=== PATIENT | female | born 1950 | race Caucasian/White ===

== ENCOUNTER → 2017-08-18 | Outpatient (CLI) | payer MEDICARE, BC ==
[~2017-08-18] MED LIST: ASPI81CH PO; CALCIUM PO; CALMAGZIN; CHOL10002 PO; ETHNOR1/5; Hair, Skin & N1 EACH PO
== END | disposition home or self-care (01) ==
LOC: LAB SHORT 13:23
DX: L03.211 Cellulitis of face (principal)
CPT/HCPCS: 87070; 87077; 87147; 87186

== ENCOUNTER 2018-09-12 07:09 | Day surgery (SDC) | payer MEDICARE, BC ==
[~2018-09-12] VITALS: Ht 162.6 cm; Wt 66.3 kg
[~2018-09-12 07:09] MED LIST changes: +BENADRYL25 MG PO; +Calcium Carbon500 MG PO; +Pepcid20 MG PO
== END 2018-09-12 09:20 | disposition home or self-care (01) ==
LOC: ORSCSDS 07:09
PROVIDERS: Internal Medicine Gastroenterology
PROC: 0DJD8ZZ Inspection of Lower Intestinal Tract, Via Natural or Artificial Opening Endoscopic (ICD-10-PCS; principal; 2018-09-12 08:30)
DX: Z12.11 Encounter for screening for malignant neoplasm of colon (principal); K57.30 Diverticulosis of large intestine without perforation or abscess without bleeding; K64.8 Other hemorrhoids; Z79.82 Long term (current) use of aspirin; Z79.899 Other long term (current) drug therapy
CPT/HCPCS: J0330; J1980; J2405; J7120

== ENCOUNTER → 2019-08-02 | Outpatient (CLI) | payer MEDICARE, BC ==
[2019-08-06 14:06] LABS: HPV 16 Negative (Negative); HPV 18 Negative (Negative); HPV OTHER HR TYPES Negative (Negative)
== END | disposition home or self-care (01) ==
LOC: LAB SHORT 13:09 → LAB 13:09
PROVIDERS: Obstetrics & Gynecology Gynecology
DX: Z12.4 Encounter for screening for malignant neoplasm of cervix (principal)
CPT/HCPCS: 87624; G0123

== ENCOUNTER → 2021-11-23 | Outpatient (CLI) | payer MEDICARE, BC | END | disposition home or self-care (01) | LOC: PLD 10:56 → LAB SHORT 10:56 | DX: D22.39 Melanocytic nevi of other parts of face (principal) | CPT/HCPCS: 88305 ==

== ENCOUNTER 2023-05-19 08:28 | Day surgery (SDC) | payer OTHER ==
[~2023-05-19] VITALS: Ht 162.6 cm; Wt 68.2 kg
[2023-05-19] MEDS ORDERED: MULTI-VITAMIN1 EAC2 (09:26)
--- NOTE | 2023-05-19 12:53 | NUR ---
05/19/23 1253 Dali Parmar TRIAL OF O2 @ 5L VIA FT AND SPO2 MAINTAINING AT 98%. TRIAL ON RA.
--- NOTE | 2023-05-19 13:28 | NUR ---
05/19/23 1328 Dali Parmar PATIENT IN RECLINER. DRINKING WATER AND EATING NAOMI DOONE COOKIES. MEDICATED WITH 12.5MCG IV FENTANYL X1 FOR 5/10 PAIN IN L HEEL. DENIES ANY NAUSEA.
[2023-05-19 13:37] VITALS: BP 105/54
== END 2023-05-19 14:18 | disposition home or self-care (01) ==
LOC: ORSCSDS 08:28
PROVIDERS: Podiatrist Foot & Ankle Surgery
PROC: 0L8P0ZZ Division of Left Lower Leg Tendon, Open Approach (ICD-10-PCS; principal; 2023-05-19 10:30)
PROC: 0QSM0ZZ Reposition Left Tarsal, Open Approach (ICD-10-PCS; principal; 2023-05-19 10:30)
PROC: 0YQN0ZZ Repair Left Foot, Open Approach (ICD-10-PCS; principal; 2023-05-19 10:30)
PROC: 0LXW0ZZ Transfer Left Foot Tendon, Open Approach (ICD-10-PCS; principal; 2023-05-19 10:30)
PROC: 0LQW0ZZ Repair Left Foot Tendon, Open Approach (ICD-10-PCS; principal; 2023-05-19 10:30)
DX: M21.42 Flat foot [pes planus] (acquired), left foot (principal); M24.572 Contracture, left ankle; M76.822 Posterior tibial tendinitis, left leg; M72.2 Plantar fascial fibromatosis
CPT/HCPCS: A9270; C1713; C1769; J0690; J1100; J1885; J2250; J2405; J2704; J2710; J3010; J7120